=== PATIENT | male | born 1945 | race Caucasian/White ===

== ENCOUNTER → 2017-12-04 | Outpatient (CLI) | payer MEDICARE ==
--- NOTE | 2017-12-04 08:35 | Diagnostic Imaging Report ---
INDICATION: Left foot pain COMPARISON: None. FINDINGS: 3 views of the left foot demonstrate no fracture or dislocation. Articular surfaces are age-appropriate. 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 There is no foreign body. IMPRESSION: 1. No fracture or dislocation. 2. 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 Dictated by: Dictated on workstation # [id number]
== END ==
LOC: RAD 07:54
PROVIDERS: ATTEND Nurse Practitioner Family
DX: M79.672 Pain in left foot (principal)
CPT/HCPCS: 73630

== ENCOUNTER 2017-12-23 07:52 | Day surgery (SDC) | payer MEDICARE ==
[2017-12-23] VITALS (15 sets, daily range): BP systolic 109–157; BP diastolic 67–81
[~2017-12-23] VITALS: Ht 182.9 cm; Wt 80.3 kg
[2017-12-23] MEDS ORDERED: LIDOCAINE 1% INJ 50 ML (XYLOCAINE) VIAL ONE (08:18)
[2017-12-23] MEDS ORDERED: NS IV 1000 ML 1,000 ML ONE (08:18)
[2017-12-23] MEDS ORDERED: HEParin (CATH LAB) 2,000 ML IV ONE (08:18)
[2017-12-23] MEDS: NS IV 1000 ML 1,000 ML IV SCH ×4 (08:31→22:17)
--- NOTE | 2017-12-23 08:51 | Diagnostic Imaging Report ---
INDICATION: Peripheral vascular disease, pre-op evaluation. PA chest obtained at 838 hours a.m. and compared with 11/22/2014. Heart and mediastinal silhouette are normal in appearance. There are chronic appearing increased interstitia markings. There is calcified granuloma in the right upper lobe. There is no acute infiltrate or pneumothorax or pleural fluid. IMPRESSION: Chronic appearing increased interstitia markings. Stable calcified granuloma over right upper lobe. No acute infiltrate or pleural fluid. Dictated by: Dictated on workstation # [id number]
[2017-12-23 08:52] LABS: HEMOGLOBIN 10.2 G/DL (13.3-17.7); MEAN PLATELET VOLUME 9.8 FL (7.4-10.4); RED BLOOD COUNT 3.32 10^6/uL (4.35-5.85); RED CELL DISTRIBUTION WIDTH 13.3 % (10.0-14.5); WHITE BLOOD COUNT 7.1 10^3/uL (4.3-11.0)
[2017-12-23] MEDS ORDERED: CEPH-507 PO (08:56)
[2017-12-23] MEDS ORDERED: FERR-84 PO (08:56)
[2017-12-23] MEDS ORDERED: LISI2.5T PO (08:56)
[2017-12-23] MEDS ORDERED: INSU100V6 SQ (08:56)
[2017-12-23] MEDS ORDERED: ATOR40TA70 PO (08:56)
[2017-12-23] MEDS ORDERED: CYAN100015 SL (08:56)
[2017-12-23] MEDS ORDERED: INSA70301U SQ (08:56)
[2017-12-23] MEDS ORDERED: CLOP75TA69 PO (08:56)
[2017-12-23] MEDS ORDERED: MULT-178 PO (08:56)
[2017-12-23] MEDS ORDERED: POTA20LI PO (08:56)
[2017-12-23] MEDS ORDERED: SPIR25TA PO (08:56)
[2017-12-23] MEDS ORDERED: FURO40TA4 PO (08:56)
[2017-12-23] MEDS ORDERED: CALC1TAB97 PO (08:56)
[2017-12-23] MEDS ORDERED: NITR0.4T39 SL (08:56)
[2017-12-23] MEDS ORDERED: ASPI-586 PO (08:56)
[2017-12-23 08:58] LABS: BILIRUBIN,URINE NEGATIVE (NEGATIVE); CLARITY,URINE CLEAR; COLOR,URINE YELLOW; GLUCOSE, URINE (UA) 2+ (NEGATIVE); KETONES,URINE 2+ (NEGATIVE); LEUKOCYTE ESTERASE ,URINE NEGATIVE (NEGATIVE); NITRITE,URINE NEGATIVE (NEGATIVE); PH,URINE 6.5 (5-9); PROTEIN,URINE 1+ (NEGATIVE); UROBILINOGEN,URINE NORMAL (NORMAL)
[2017-12-23 09:01] LABS: INR 0.9 (0.8-1.4); PROTHROMBIN TIME PATIENT 12.6 SEC (12.2-14.7)
[2017-12-23 09:04] LABS: BACTERIA,URINE NEGATIVE /HPF
[2017-12-23 09:05] LABS: SQUAMOUS EPITHELIAL CELL,UR RARE /HPF
[2017-12-23 09:09] LABS: ALANINE AMINOTRANSFERASE 19 U/L (0-55); ALBUMIN 3.9 GM/DL (3.2-4.5); ALKALINE PHOSPHATASE 96 U/L (40-136); BILIRUBIN,TOTAL 0.3 MG/DL (0.1-1.0); BUN/CREATININE RATIO 23; CALCIUM 9.1 MG/DL (8.5-10.1); CARBON DIOXIDE 22 MMOL/L (21-32); CHLORIDE 106 MMOL/L (98-107); CHOLESTEROL 128 MG/DL (< 200); CREATININE SERUM 0.92 MG/DL (0.60-1.30); GFR ESTIMATED > 60; GLUCOSE 238 MG/DL (70-105); HDL CHOLESTEROL 46 MG/DL (40-60); POTASSIUM 4.8 MMOL/L (3.6-5.0); SODIUM 138 MMOL/L (135-145); TOTAL PROTEIN 7.3 GM/DL (6.4-8.2); TRIGLYCERIDES 53 MG/DL (<150); VLDL CHOLESTEROL 11 MG/DL (5-40)
[2017-12-23] MEDS ORDERED: fentaNYL INJECTION 100 MCG/2 ML AMP ONE (11:40)
[2017-12-23] MEDS ORDERED: MIDAZOLAM 5 MG/5 ML (VERSED) VIAL ONE (11:40)
[2017-12-23] MEDS ORDERED: HEParin 1000 UNIT/ML (10ML VIAL) FOR BOLUS ONE (12:15)
[2017-12-23] MEDS ORDERED: NS IV 1000 ML 2,000 ML ONE (12:21)
[2017-12-23] MEDS ORDERED: NITRO DRIP 25000 MCG/D5W 250 ML IV ONE (12:51)
[2017-12-23] MEDS ORDERED: ASPIRIN 325 MG (5 GR) TABLET ONE (13:29)
[2017-12-23] MEDS ORDERED: CLOPIDOGREL 300 MG (PLAVIX) TABLET PO ONE (13:29)
[2017-12-23] MEDS ORDERED: PATIENT MAY USE OWN MEDS, ALL PO SCH (13:30)
[2017-12-23] MEDS ORDERED: NITROGLYCERIN 0.4 MG SL TABS BTL 25'S SL PRN (13:30)
[2017-12-23] MEDS ORDERED: NON-FORMULARY MEDICATION 1 EA EA (Cephalexin (Keflex) 500 MG) PO SCH (13:30)
--- NOTE | 2017-12-23 13:31 | Cardiac Procedure Note-CS/ASA ---
Pre-Procedure Note Pre-Op Procedure Note H&P Reviewed The H&P was reviewed, patient examined and no changes noted. Date H&P Reviewed: Dec 23, 2017 Time H&P Reviewed: 13:31 Conscious Sedation Pre-Proced Time Reviewed: 11:00 ASA Class: 3 Airway Mallampati Classification: ([place] appropriate class) I. II. III, IV Lungs Heart ASA score ASA 1: a normal healthy patient ASA 2: a patient with a mild systemic disease (mid diabetes, controlled hypertension, obesity x ASA 3: a patient with a severe systemic disease that limits activity (angina , COPD, prior Myocardial infarction) ASA 4: a patient with an incapacitating disease that is a constant threat to life (CHF, renal failure) ASA 5: a moribund patient not expected to survive 24 hrs. (ruptured aneurysm) ASA 6: a declared brain patient whose organs are being harvested. For emergent operations, add the letter E after the classification Grade 3 Sedation Plan: Analgesia, Amnesia, Plan communicated to team members, Discussed options with patient/fam, Discussed risks with patient/fam Note The patient is an appropriate candidate to undergo the planned procedure, sedation, and anesthesia. The patient immediately re-assessed prior to indication. ORTEGA LARIOS MD Dec 23, 2017 13:31
--- NOTE | 2017-12-23 13:43 | Peripheral Report ---
Peripheral Report Physician (s)/Butadiene Convertor Operator (s) Physician ORTEGA LARIOS MD Pre-Procedure Diagnosis Pre-Procedure Diagnosis: Nonhealing foot ulcer Post-Procedure Note Procedure Start Date: Dec 23, 2017 Name of Procedure: Abdominal aortogram Bilateral lower extremity runoff Atherectomy with balloon angioplasty to the SFA and popliteal artery Findings/Procedure Note PROCEDURE NOTE: After explaining the procedure to the patient, all pros and cons were explained, all questions were answered. The patient signed the consent and then she was placed on the cardiac catheterization laboratory. The patient was placed on the cardiac catheterization laboratory. Groin was prepped SL fashion local anesthesia was used. Sheath placed in the right femoral artery, runoff was done through the sheath to the right direction. Pigtail advanced to the abdominal aorta and abdominal aortogram was done Storq wire was advanced through the pigtail down to the left SFA then pigtail was exchanged into a straight catheter. Runoff to the left lower except he was done, patient was noted to have total occlusion at the distal SFA with popliteal artery. Total of 6000 units of heparin were given Sheath was exchanged into 45 cm 7 Turkish sheath advanced to the left common femoral I was unable to advance stroke wire across the total occlusion, I was able to advance 0.014 command wire across the lesion and it was parked distally. Then I advanced 460 balloon placed across the area of total occlusion and removed the wire injection through the balloon lumen down the popliteal artery showed the good positioning and occlusion of the posterior tibial poor flow in the anterior tibial and peroneal. Bare wire advanced and parked in the anterior tibial artery, [id number] I used a protection device with filter NAV6 deployed in the popliteal artery then I proceeded with atherectomy using [employer] XC catheter, multiple run were done then the protection device was retrieved, angiogram showed improvement, I proceeded with prepping the vessel with ARMADA 6 X 120 1 inflation in the distal SFA and popliteal then I used the tonic drug-coated balloon six-time 150 inflated for 3 minutes, angiographic showed excellent results, I did 3 additional images to evaluate the trifurcation the mid portion and the foot level vessels on the left. The long 7 Turkish sheath was exchanged into short 7 Turkish sheath Pigtail catheter was reintroduced to the abdominal aorta and angiogram showed no complication At the end of the procedure sheath was removed with minx device deployed FINDINGS: Abdominal aortogram showed atherosclerotic disease involving the bifurcation, [id number] disease nonobstructive disease Right lower extremity, diffuse atherosclerotic disease down to the trifurcation , unable to visualize the vessels below the trifurcation Left lower extremity, moderate disease at the left common femoral and ostium of the SFA, mild to moderate disease diffusely in the SFA, total occlusion of the distal SFA, successful balloon angioplasty then atherectomy using JETSTREAM XC, predilatation with balloon and then drug-coated balloon LUTONIX 6 X 150 to the distal SFA and popliteal artery with excellent results Total occlusion of the posterior tibial artery with no reconstruction, could not see the origin of the posterior tibial artery Mild to moderate disease at the peroneal artery, mild disease at the anterior tibial artery with good flow down to the foot on the left side CONCLUSIONS: 1. Total occlusion of the left distal SFA with successful complex intervention with atherectomy then drug-coated balloon using LUTONIX 6 X150 with excellent result involving the distal SFA and popliteal artery 2. Total occlusion of the posterior tibial artery on the left, heavily calcified, without ability to visualize the origin of the tibial artery. On the other hand the anterior tibial artery has mild disease down to the foot and the peroneal artery has mild to moderate disease which could hopefully provide enough blood flow to the foot after improvement of the SFA 3. Mild to moderate disease on the right lower extremity in the SFA and common femoral down to the trifurcation 4. Mild to moderate disease in the abdominal aorta and bifurcation DISCUSSION AND RECOMMENDATIONS: I will continue maximizing medical therapy. Continue to monitor closely. If no improvement in the heel I will consider referral to tertiary center for evaluation of the posterior tibial artery Anesthesia Type: Conscious Sedation Estimated blood loss (mL): 15 ML Contrast Amount: 90ML Total Radiation Dose: 164mGy Post-Procedure Diagnosis Post-operative diagnosis: Nonhealing foot ulcer Peripheral arterial disease Hypertension Hyperlipidemia ORTEGA LARIOS MD Dec 23, 2017 13:43
[2017-12-23] MEDS ORDERED: NON-FORMULARY MEDICATION 1 EA EA (Insulin Glargine,Hum.rec.anlog (Lantus) 20 UNIT) SQ SCH (21:00)
[2017-12-23] MEDS ORDERED: inSUlin DETERMIR 1 UNIT/0.01 ML (LEVEMIR) CHARGE PER UNIT SQ SCH (21:00)
[2017-12-23] MEDS: CEPHALEXIN 250 MG (KEFLEX) CAP PO SCH (21:04)
[2017-12-24 03:39] LABS: HEMOGLOBIN 9.7 G/DL (13.3-17.7); MEAN PLATELET VOLUME 9.9 FL (7.4-10.4); RED BLOOD COUNT 3.21 10^6/uL (4.35-5.85); RED CELL DISTRIBUTION WIDTH 13.2 % (10.0-14.5)
[2017-12-24 04:03] LABS: BUN/CREATININE RATIO 21; CALCIUM 8.6 MG/DL (8.5-10.1); CARBON DIOXIDE 18 MMOL/L (21-32); CHLORIDE 107 MMOL/L (98-107); CREATININE SERUM 0.73 MG/DL (0.60-1.30); GFR ESTIMATED > 60; GLUCOSE 134 MG/DL (70-105); POTASSIUM 3.9 MMOL/L (3.6-5.0); SODIUM 138 MMOL/L (135-145)
[2017-12-24 04:30] VITALS: BP 125/66
[2017-12-24] MEDS: CEPHALEXIN 250 MG (KEFLEX) CAP PO SCH (06:21)
[2017-12-24] MEDS ORDERED: CYANOCOBALAMIN 500 MCG TAB (VITAMIN B-12) PO SCH (07:00)
[2017-12-24] MEDS ORDERED: KCL 20 MEQ TAB (K-DUR) PO SCH (07:00)
[2017-12-24] MEDS ORDERED: MULTIVIT W/MINERALS TAB (THERAGRAN M) PO SCH (07:00)
[2017-12-24 08:00] VITALS: BP 128/68
[2017-12-24] MEDS ORDERED: FERROUS SULF 325 MG (IRON) TAB PO SCH (08:00)
--- NOTE | 2017-12-24 08:12 | Discharge Inst-Post CATH ---
Discharge Inst-CATH Post Cardiac Cath D/C Inst Follow Up/Plan Appointment with Dr. Dixon's office in one to 2 weeks CARDIAC CATH DISCHARGE INSTRUCTIONS *Hold Metformin for 48 hours post heart cath. ACTIVITY * Go Home directly and rest. * Limit activity of the leg (or wrist if it was used) for 7 days including aerobics, swimming, jogging, bicycling, etc. * Restrict stair-climbing for 7 days if possible, if not, climb up with your non -cath leg, then bring together on the same step. * Avoid lifting, pushing, pulling or excessive movement of the affected extremity for 7 days. * Customary sexual activity may be resumed after 2 days-use caution not to use a position that strains or causes pain to the affected extremity. * No driving for 24 hours. * NO SMOKING. * Avoid straining for bowel movements for 7 days. * Gentle walking on level ground is allowed. * Returning to work will depend on the type of procedure and the results. Your doctor will discuss this with you. CALL YOUR DOCTOR FOR ANY OF THE FOLLOWING: *If bleeding from the puncture site occurs- Apply gentle pressure to site with clean cloth and call your doctor or EMS. * If a knot or lump forms under the skin, increases in size, or causes pain. * If bruising appears to be worsening or moving further down your leg instead of disappearing. * Temperature above 101 F. CARE OF YOUR GROIN INCISION; * Bruising or purple discoloration of the skin near the puncture site is common. * You may shower only, no bathtub bathing for 5 days. Be careful to avoid slipping as your leg may feel stiff. * If a closure device was used on your femoral artery, please see the attached guide regarding care of the device and your leg. * REMOVE the dressing from your groin the next day after your procedure in the shower. CARE OF YOUR WRIST INCISION; * Bruising or purple discoloration of the skin near the puncture site is common. * You may shower. * DO NOT submerge wrist. * Remove dressing in 24 hours. ORTEGA DIXON MD Dec 24, 2017 08:12
--- NOTE | 2017-12-24 08:14 | Cardiology Progress Note ---
Subjective Date Seen by Provider: Dec 24, 2017 Time Seen by Provider: 08:14 Subjective/Events-last exam Patient is laying down in bed, feeling well. Denied any chest pain or shortness of breath. Groin is healing well. Leg is warm Review of Systems General: No Chills, No Night Sweats, No Fatigue, No Malaise, No Appetite, No Other HEENT: No Head Aches, No Visual Changes, No Eye Pain, No Ear Pain, No Dysphasia , No Sinus Congestion, No Post Nasal Drip, No Sore Throat, No Other Pulmonary: No Dyspnea, No Cough, No Pleuritic Chest Pain, No Other Cardiovascular: No: Chest Pain, Palpitations, Orthopnea, Paroxysmal Noc. Dyspnea, Edema, Lt Headedness, Other Objective-Cardiology Exam Last Set of Vital Signs Vital Signs 12/24/17 04:30 Temp 97.4 Pulse 97 Resp 16 B/P (MAP) 125/66 (85) Pulse Ox 95 O2 Delivery Room Air Capillary Refill : Less Than 3 Seconds I&O Intake and Output 12/24/17 00:00 Intake Total 1000 ml Balance 1000 ml IV Total 1000 ml General: Alert, Oriented X3, Cooperative HEENT: Atraumatic, PERRLA Neck: Supple, No JVD, No Thyromegaly Lungs: Clear to Auscultation, Normal Air Movement Heart: Regular Rate, Normal S1, Normal S2, No Murmurs Abdomen: Normal Bowel Sounds, Soft, No Tenderness, No Hepatosplenomegaly, No Masses Extremities: No Clubbing, No Cyanosis, No Edema, Normal Pulses, No Tenderness/ Swelling Skin: No Rashes, No Breakdown, No Significant Lesion Neuro: Normal Gait, Normal Speech, Strength at 5/5 X4 Ext, Normal Tone, Sensation Intact Psych/Mental Status: Mental Status NL, Mood NL Results Lab Laboratory Tests 12/23/17 08:38 12/24/17 03:05 A/P-Cardiology Admission Diagnosis Peripheral arterial disease Nonhealing foot ulcer Hypertension Hyperlipidemia Assessment/Plan Peripheral arterial disease status post intervention. 1. Total occlusion of the left distal SFA with successful complex intervention with atherectomy then drug-coated balloon using LUTONIX 6 X150 with excellent result involving the distal SFA and popliteal artery 2. Total occlusion of the posterior tibial artery on the left, heavily calcified, without ability to visualize the origin of the tibial artery. On the other hand the anterior tibial artery has mild disease down to the foot and the peroneal artery has mild to moderate disease which could hopefully provide enough blood flow to the foot after improvement of the SFA 3. Mild to moderate disease on the right lower extremity in the SFA and common femoral down to the trifurcation 4. Mild to moderate disease in the abdominal aorta and bifurcation Nonhealing foot ulcer secondary to peripheral arterial disease status post opening totally occluded SFA. Continue to monitor, groin is healing well Hypertension, controlled monitor blood pressure next Hyperlipidemia, monitor blood pressure ORTEGA LARIOS MD Dec 24, 2017 08:14
[2017-12-24] MEDS ORDERED: SPIRONOLACTONE 25 MG (ALDACTONE) TAB PO SCH (09:00)
[2017-12-24] MEDS ORDERED: lisINopril 5 MG (PRINIVIL) TABLET PO SCH (09:00)
[2017-12-24] MEDS ORDERED: CLOPIDOGREL 75 MG (PLAVIX) TABLET PO SCH (09:00)
[2017-12-24] MEDS ORDERED: FUROSEMIDE 40 MG (LASIX) TAB PO SCH (09:00)
[2017-12-24] MEDS ORDERED: NON-FORMULARY MEDICATION 1 EA EA (Lisinopril 2.5 MG) PO SCH (09:00)
[2017-12-24] MEDS ORDERED: NON-FORMULARY MEDICATION 1 EA EA (Multivitamin (Multiple Vitamins) 1 EACH) PO SCH (09:00)
[2017-12-24] MEDS ORDERED: ASPIRIN E.C. 81 MG (ECOTRIN) TAB PO SCH (09:00)
[2017-12-24] MEDS ORDERED: ATORVASTATIN 40 MG (LIPITOR) TABLET PO SCH (09:00)
== END 2017-12-24 09:00 | disposition home or self-care (01) ==
LOC: CATH 07:52 → SURG 13:53 → ICU 17:15 → CATH 12-24 09:00
PROVIDERS: ATTEND Internal Medicine Cardiovascular Disease
DX: E11.621 Type 2 diabetes mellitus with foot ulcer (principal); L97.429 Non-pressure chronic ulcer of left heel and midfoot with unspecified severity; I25.10 Atherosclerotic heart disease of native coronary artery without angina pectoris; I73.9 Peripheral vascular disease, unspecified; I10 Essential (primary) hypertension; E78.2 Mixed hyperlipidemia; Z79.899 Other long term (current) drug therapy; Z79.01 Long term (current) use of anticoagulants; Z79.82 Long term (current) use of aspirin; Z87.891 Personal history of nicotine dependence; N40.0 Benign prostatic hyperplasia without lower urinary tract symptoms; Z82.49 Family history of ischemic heart disease and other diseases of the circulatory system
CPT/HCPCS: 36415; 37225; 71045; 75625; 75716; 80048; 80053; 80061; 81000; 85027; 85610; 85730; 87081; 93005